=== PATIENT | female | born 1970 | race Native Hawaiian/Other Pacific Islander ===

== ENCOUNTER 2017-09-30 06:55 | Emergency (ER) | payer OTHER ==
[~2017-09-30] VITALS: Ht 165.1 cm; Wt 72.6 kg
[~2017-09-30 06:55] MED LIST: ESTRING2 MG PO
[2017-09-30] MEDS ORDERED: PROZAC10 MG PO (07:09)
[2017-09-30 07:46] LABS: PLATELET COUNT 340 K/uL (152-353)
[2017-09-30 07:55] LABS: POTASSIUM 3.8 mmol/L (3.6-5.2)
[2017-09-30 10:10] VITALS: BP 108/62; TEMP 98
== END 2017-09-30 11:40 | disposition home or self-care (01) ==
LOC: ED 06:55
PROVIDERS: Specialist
DX: L03.114 Cellulitis of left upper limb (principal); L03.113 Cellulitis of right upper limb; T78.40XA Allergy, unspecified, initial encounter; T43.225A Adverse effect of selective serotonin reuptake inhibitors, initial encounter; D72.829 Elevated white blood cell count, unspecified
CPT/HCPCS: 80048; 85027; 85651; 87081; 87880; 99283

== ENCOUNTER 2018-06-13 14:43 | Outpatient (CLI) | payer BC ==
[~2018-06-13 14:43] MED LIST changes: +PROZAC10 MG PO
== END 2018-06-13 19:37 | disposition home or self-care (01) ==
LOC: MAMMO 14:43
DX: Z12.31 Encounter for screening mammogram for malignant neoplasm of breast (principal)

== ENCOUNTER 2018-08-29 18:11 | Emergency (ER) | payer BC ==
[~2018-08-29] VITALS: Ht 165.1 cm; Wt 77.1 kg
[2018-08-29 19:51] LABS: PLATELET COUNT 245 K/uL (152-353)
[2018-08-29 19:56] LABS: POTASSIUM 3.8 mmol/L (3.6-5.2)
[2018-08-29 21:20] VITALS: BP 152/83; TEMP 98
== END 2018-08-29 21:20 | disposition home or self-care (01) ==
LOC: ED 18:11
PROVIDERS: Family Medicine
DX: M79.18 Myalgia, other site (principal)
CPT/HCPCS: 36415; 80053; 81000; 85027; 87081; 87880; 96374; 99284; J2405

== ENCOUNTER 2020-06-02 10:19 | Outpatient (CLI) | payer BC | END 2020-06-02 19:19 | disposition home or self-care (01) | LOC: MAMMO 10:19 | DX: N63.11 Unspecified lump in the right breast, upper outer quadrant (principal); R07.89 Other chest pain ==

== ENCOUNTER 2020-06-06 16:08 | Outpatient (CLI) | payer BC | END 2020-06-06 23:07 | disposition home or self-care (01) | LOC: RAD 16:08 | PROVIDERS: ATTEND Nurse Practitioner | DX: M54.14 Radiculopathy, thoracic region (principal); M54.12 Radiculopathy, cervical region ==

== ENCOUNTER 2020-07-15 13:54 | Outpatient (CLI) | payer BC | END 2020-07-15 20:33 | disposition home or self-care (01) | LOC: MRI 13:54 | DX: M54.16 Radiculopathy, lumbar region (principal); M54.12 Radiculopathy, cervical region ==